=== PATIENT | female | born 1960 | race Caucasian/White ===

== ENCOUNTER → 2016-10-13 | Outpatient (CLI) | payer MEDICARE, OTHER ==
[~2016-10-13] MED LIST: TOPROL XL PO
--- NOTE | ~2016-10-13 | US136 ---
[facility] A Service of [facility] RADIOLOGY TEXT RESULTS PATIENT: MIERILLE MAYFIELD LOCATION: CNIV : 64 UNIT #: [id number] AGE: [address]: WENDY ROBERTS APRN SEX: F ORDER DR: [id number] [facility] [address] [place], [place] [address] [id number] MR#: [id number] Acc #: [id number] NAME: MIREILLE MAYFIELD : 1960 SEX: F STUDY DATE/TIME: 10/13/2016 9:30 UNIT: CNIV ROOM: STUDY DESCRIPTION: U/L Ext Art Study Ltd Bilat Attending Physician: Wendy Roberts Aprn Referring Physician: Wendy Roberts Aprn Ordering Physician: Wendy Roberts Aprn Primary Care Physician: Raj Not Listed MEDICAL IMAGING REPORT This report is preliminary unless electronic signature is present DATE OF EXAM 10/13/2016 EXAM Bilateral lower extremity AISLINN. HISTORY Peripheral arterial disease. FINDINGS The right brachial pressure is 152, left is not obtained. The right dorsalis pedis pressure is 137 and posterior tibial is 140, for an AISLINN of 0.92 and a first toe pressure of 127 mmHg. The left dorsalis pedis pressure is 139, posterior tibial is 151, for an AISLINN of 0.99 and a first toe pressure of 131 mmHg. PVR waveform at the ankle level is normal at the right and left leg. First digital waveforms appears to be intact and normal bilateral. There are triphasic waveforms at the right and left posterior tibial artery and biphasic waveforms at the right and left dorsalis pedis artery. IMPRESSION No arterial insufficiency in either the right or the left lower extremity with adequate perfusion of the first toes. Dictated by... Anya Ashraf M.D. [facility] A Service [facility] RADIOLOGY TEXT RESULTS PATIENT: MIREILLE MAYFIELD LOCATION: CNIV : 64 UNIT #: [id number] AGE: [address]: WENDY ROBERTS, MELISSA SEX: F ORDER DR: THIS IS AN ELECTRONICALLY VERIFIED REPORT Anya Ashraf M.D. at 10/14/2016 7:10 AM ANA/hans TD: 10/13/2016 14:18 JOB #: [id number] MEDICAL IMAGING REPORT Page 1 of 1 COPY
== END | disposition home or self-care (01) ==
LOC: CNIV 09:14
DX: I73.9 Peripheral vascular disease, unspecified (principal)
CPT/HCPCS: 93922